=== PATIENT | female | born 1975 | race Caucasian/White ===

== ENCOUNTER 2016-05-10 19:31 | Emergency (ER) | payer OTHER ==
[2016-05-10 19:37] VITALS: BP 130/71; PULSE 88; TEMP 97.9; BMI 28.3
[2016-05-10 19:43] LABS: URINE APPEARANCE Clear; URINE BILIRUBIN Negative (NEGATIVE); URINE GLUCOSE (UA) Negative (NEGATIVE); URINE KETONE Negative (NEGATIVE); URINE NITRITE Negative (NEGATIVE); URINE PROTEIN Negative (NEGATIVE); URINE UROBILINOGEN 0.2 E.U/dl (0.2-1.0)
[2016-05-10 19:48] LABS: URINE BLOOD 1+ (NEGATIVE); URINE COLOR YELLOW
--- NOTE | 2016-05-10 20:26 | PDOC ---
History of Present Illness - History of Present Illness Initial Comments: 05/10/16 20:41 The patient is a 41 year old female, with a significant past medical history of UTI and kidney stones, who presents to the emergency department with burning on urination and suprapubic discomfort since yesterday. She states she finished a 10 day dose of amoxicillin for a UTI 3 days ago and felt her symptoms resolve, however, reports her dysuria returned at 4am this morning with new onset of bladder pain. She also reports a couple episodes of watery, brown diarrhea yesterday. She reports starting ortho tri cyclen-low 2 months ago. She also reports recently being tested for STDs and was negative. She states she has had adverse reactions to macrobid and usually takes amoxicillin if needed. LMP: 04/20/16 She denies chest pain, shortness of breath, headache and dizziness. She denies fever, chills, nausea, vomit, diarrhea and constipation. She denies frequency, urgency and hematuria. practice specialist - Dr. Braga <Rosi Gonzales - Last Filed: 05/10/16 20:41> <Lulú Lindsey - Last Filed: 05/11/16 03:33> - General Chief Complaint: Urinary Problem Stated Complaint: burning on urination Time Seen by Provider: 05/10/16 19:33 Past History <Rosi Gonzales - Last Filed: 05/10/16 20:41> - Past Medical History Other medical history: denies - Psycho/Social/Smoking Cessation Hx Anxiety: No Suicidal Ideation: No Smoking History: Never smoked Have you smoked in the past 12 months: No Hx Alcohol Use: No Drug/Substance Use Hx: No Substance Use Type: None <Lulú Lindsey - Last Filed: 05/11/16 03:33> - Past Medical History Allergies/Adverse Reactions: Allergies Allergy/AdvReac Type Severity Reaction Status Date / Time Sulfa (Sulfonamide Allergy Verified 05/10/16 19:31 Antibiotics) Home Medications: Ambulatory Orders Norgestimate-Ethinyl Estradiol [Ortho Tri-Cyclen Lo Tablet] 1 each PO DAILY 04/25 Review of Systems - Review of Systems Able to Perform ROS?: Yes Comments:: 05/10/16 20:41 CONSTITUTIONAL: Absent: fever, chills, diaphoresis, generalized weakness, malaise, loss of appetite HEENT: Absent: rhinorrhea, nasal congestion, throat pain, throat swelling, difficulty swallowing,mouth swelling, ear pain, eye pain, visual Changes CARDIOVASCULAR: Absent: chest pain, syncope, palpitations, irregular heart rate, lightheadedness , peripheral edema RESPIRATORY: Absent: cough, shortness of breath, dyspnea with exertion, orthopnea, wheezing, stridor, hemoptysis GASTROINTESTINAL: Absent: abdominal distension, nausea, vomiting, diarrhea, constipation, melena, hematochezia GENITOURINARY: (+) dysuria, suprapubic pain. Absent: frequency, urgency, hesitancy, hematuria, flank pain, genital pain MUSCULOSKELETAL: Absent: myalgia, arthralgia, joint swelling SKIN: Absent: rash, itching, pallor HEMATOLOGIC/IMMUNOLOGIC: Absent: easy bleeding, easy bruising, lymphadenopathy, frequent infections ENDOCRINE: Absent: unexplained weight gain, unexplained weight loss, heat intolerance, cold intolerance NEUROLOGIC: Absent: headache, focal weakness or paresthesias, dizziness, unsteady gait, seizure, mental status changes, bladder or bowel incontinence PSYCHIATRIC: Absent: anxiety, depression, suicidal or homicidal ideation, hallucinations. <Rosi Gonzales - Last Filed: 05/10/16 20:41> *Physical Exam - Vital Signs Last Vital Signs Temp Pulse Resp BP Pulse Ox 97.9 F 88 16 130/71 100 05/10/16 19:31 05/10/16 19:31 05/10/16 19:31 05/10/16 19:31 05/10/16 19:31 - Physical Exam Comments: 05/10/16 20:42 GENERAL: The patient is awake, alert, and fully oriented, in no acute distress. HEAD: Normal with no signs of trauma. EYES: Pupils equal, round and reactive to light, extraocular movements intact, sclera anicteric, conjunctiva clear with no pallor. ENT: Ears normal, nares patent, oropharynx clear without exudates. Moist mucous membranes. NECK: Normal range of motion, supple without lymphadenopathy, JVD, or masses. LUNGS: Breath sounds equal, clear to auscultation bilaterally. No wheeze/ crackles. HEART: Regular rate and rhythm, normal S1 and S2 without murmur or rub. ABDOMEN: (+) mildly ttp at the LLQ. Soft/nondistended. BS wnl. No guarding or rebound. No palpable masses. No hepatosplenomegaly. EXTREMITIES: Normal range of motion, no edema. No clubbing or cyanosis. No cords , erythema, or tenderness. NEUROLOGICAL: Cranial nerves II through XII grossly intact. Normal speech, normal gait. PSYCH: Normal mood, normal affect. SKIN: Warm, Dry, normal turgor, no rashes or lesions noted. <Rosi Gonzales - Last Filed: 05/10/16 20:41> - Vital Signs Last Vital Signs Temp Pulse Resp BP Pulse Ox 97.9 F 88 16 130/71 100 05/10/16 19:31 05/10/16 19:31 05/10/16 19:31 05/10/16 19:31 05/10/16 19:31 <Lulú Lindsey - Last Filed: 05/11/16 03:33> ED Treatment Course - ADDITIONAL ORDERS Additional order review: Laboratory Results 05/10/16 19:36 Urine Color Yellow Urine Appearance Clear Urine pH 7.0 D Ur Specific [place] 1.010 Urine Protein Negative Urine Glucose (UA) Negative Urine Ketones Negative Urine Blood 1+ H Urine Nitrite Negative Urine Bilirubin Negative Urine Urobilinogen 0.2 e.u/dl Ur Leukocyte Esterase Trace <Rosi Gonzales - Last Filed: 05/10/16 20:41> - ADDITIONAL ORDERS Additional order review: Laboratory Results 05/10/16 19:36 Urine Color Yellow Urine Appearance Clear Urine pH 7.0 D Ur Specific [place] 1.010 Urine Protein Negative Urine Glucose (UA) Negative Urine Ketones Negative Urine Blood 1+ H Urine Nitrite Negative Urine Bilirubin Negative Urine Urobilinogen 0.2 e.u/dl Ur Leukocyte Esterase Trace <Lulú Lindsey - Last Filed: 05/11/16 03:33> Progress Note - Progress Note Progress Note: Documentation has been prepared under my direction and personally reviewed by me in its entirety. I attest that this documented accurately reflects all work, treatment, procedures and medical decision making performed by me. <Lulú Lindsey - Last Filed: 05/11/16 03:33> Medical Decision Making - Medical Decision Making As noted above, this 41-year-old woman presents with burning on urination and suprapubic discomfort. Patient has just completed a course of amoxicillin for the symptoms (patient will but not take any other antibiotic). This was prescribed by her primer charging tool setter who has called her to tell her that the urine culture did not show significant amounts of bacteria. Although the patient has a history of UTI and renal stones in the past, she has never been evaluated by a urologist. Exam as noted above. Urinalysis shows no clear evidence of UTI; microscopic exam shows 0-2 RBC, 5-8 WBC, few epithelial cells, few bacteria. Urine has been sent for culture and sensitivity. Results discussed with the patient. There is no reason to begin empirical antibiotic treatment of her dysuria. Results of urine culture and sensitivity will determine if antibiotics are started again. Meanwhile, the patient should drink plenty of water and Pyridium 200 mg 3 times a day for 2 days will be prescribed. Since patient has never seen a urologist, she will be given referral information for Dr. Suleiman hernández with whom she should follow-up within the next several days. Patient states that she is leaving for [place] on vacation in approximately 10 days. She should call the urologist's office tomorrow to make an appointment. She should return to the ER if she has any increase in severity of her symptoms <Lulú Lindsey - Last Filed: 05/11/16 03:33> *DC/Admit/Observation/Transfer - Attestations Scribe Attestion: 05/10/16 20:42 Documentation prepared by Rosi Gonzales, acting as medical records receptionist for Lulú Lindsey MD <Rosi Gonzales - Last Filed: 05/10/16 20:41> <Lulú Lindsey - Last Filed: 05/11/16 03:33> Diagnosis at time of Disposition: Dysuria - Discharge Dispostion Disposition: HOME Condition at time of disposition: Stable - Referrals Referrals: Wong Bearden MD [Staff Physician] - - Patient Instructions Printed Discharge Instructions: DI for Dysuria -- Adult Additional Instructions: drink plenty of fluids pyridium 200mg 3 times a day for 2 days return to ER if pain worsens followup with urologist(Dr Suleiman hernández) within 1 week
[2016-05-10 21:19] LABS: URINE LEUK ESTERASE Trace (NEGATIVE)
[2016-05-10] MEDS ORDERED: PHENAZOPYRIDINE HCL 100 MG TABLET (FP) PO ONE (21:42)
[2016-05-10] MEDS ORDERED: PHENAZOPYRIDINE HCL 100 MG TABLET (FP) ONE (21:44)
== END 2016-05-10 21:45 | disposition home or self-care (01) ==
LOC: FER 19:31
DX: R30.0 Dysuria (principal); Z87.442 Personal history of urinary calculi; Z87.440 Personal history of urinary (tract) infections
CPT/HCPCS: 81003; 87086; 99283-25

== ENCOUNTER 2016-08-16 20:22 | Inpatient (IN) | payer OTHER ==
--- NOTE | 2016-08-16 20:25 | PDOC ---
History of Present Illness - General History Source: Patient Exam Limitations: No Limitations - History of Present Illness Initial Comments: 08/16/16 21:02 The patient is a 41 year old female, with a significant past medical history of gallstones, who presents to the emergency department complaining of RUQ for approximately 1 day. The patient reports the pain radiates into her back. She reports an associated subjective fever, chills, and body aches. The patient reports taking 1000 mg tylenol every 7-8 hours and 600 mg ibuprofen, every 4 hours, with mild relief of symptoms. Patient states she stayed at home from work today due to symptoms, and reports hydrating throughout the day. The patient denies any nausea, vomiting, diarrhea, or constipation. The patient denies any chest pain, shortness of breath, diaphoresis, or palpitations. The patient denies any cough, headache, or dizziness PAST MEDICAL HISTORY: Gallstones PAST SURGICAL HISTORY: No significant history FAMILY HISTORY: No pertinent history SOCIAL HISTORY: Pt lives with family and is employed. MEDICATIONS: Reviewed ALLERGIES: As per nursing notes General: Yes: +fever, +chills, +body aches. No weakness, no weight loss HEENT: No change in vision. No sore throat. No ear pain CardioVascular: No chest pain or shortness of breath Respiratory: No cough, or wheezing. Gastrointestinal: Yes: +RUQ pain radiating into right back. No nausea, vomiting , diarrhea or constipation. No rectal bleeding Genitourinary: No dysuria, hematuria, or frequency Musculoskeletal: No joint or muscle swelling Neurologic: No headache, vertigo, dizziness or loss of consciousness Psychiatric: No depression Skin: No rashes or easy bruising Endocrine: No increased thirst or abnormal weight change Allergic: No skin or latex allergy All other systems reviewed and normal General: Well-nourished well-developed individual, no acute distress HEENT: Dry mucous membranes. Throat: Normal, tonsils normal, no erythema or exudate Neck: Supple, no meningeal signs, no lymphadenopathy Eyes: Pupils equal reactive and round, extraocular motion intact Chest: Nontender to palpation Cardiac: Tachycardic, but regular rhythm. S1-S2 normal, no murmurs rubs or gallops Respiratory: Lungs clear to auscultation bilateral Abdomen: Tenderness on palpation to the RUQ, but no guarding or rebound. Soft, nondistended, normal bowel sounds, nontender to palpation in all other quadrants Extremities: Warm, dry, no cyanosis, clubbing, or edema Skin: No rashes Neuro: Alert and oriented x3, nonfocal exam, grossly intact, normal gait Psych: Normal mood and affect <Gee Shepherd - Last Filed: 08/16/16 21:45> - General History Source: Patient Exam Limitations: No Limitations - History of Present Illness Initial Comments: 08/16/16 23:22 A portion of this note was documented by scribe services under my direction. I have reviewed the details of the note, within reason, and agree with the documentation. The case summary and management plan written by me. Assessment and plan: This is a 41-year-old female who comes in complaining of right upper quadrant pain. Patient was also noted to have a temperature of 103 in the emergency room. Patient's lab reveals a white count of the left shift. Patient had an ultrasound of her gallbladder done that shows some questionable thickening of the gallbladder wall and a stone lodged in the neck of the gallbladder however no pericholecystic fluid or ductal dilation. Patient also did have an incidental finding of a hypokalemic very small spot on her liver that will need to be worked at some time most likely as an outpatient. Discussed with Dr. Ratliff the general surgeon who well see patient in the morning regarding probable removal of her gallbladder. Patient was then admitted to Dr. Shanel Cam. Discussed case with immediately will admit patient tonight and see patient in the morning as well. <Hudson Shelton I - Last Filed: 08/16/16 23:24> - General Chief Complaint: Pain, Acute Stated Complaint: RLQ PAIN AN DFVER Time Seen by Provider: 08/16/16 20:25 Past History <Gee Shepherd - Last Filed: 08/16/16 21:45> - Psycho/Social/Smoking Cessation Hx Anxiety: No Suicidal Ideation: No Smoking History: Never smoked Have you smoked in the past 12 months: No Hx Alcohol Use: No Drug/Substance Use Hx: No Substance Use Type: None <Hudson Shelton I - Last Filed: 08/16/16 23:24> - Past Medical History Allergies/Adverse Reactions: Allergies Allergy/AdvReac Type Severity Reaction Status Date / Time Sulfa (Sulfonamide Allergy Verified 05/10/16 19:31 Antibiotics) ciprofloxacin AdvReac Verified 08/16/16 21:09 latex AdvReac Verified 08/16/16 21:09 nitrofurantoin AdvReac Difficulty Verified 08/16/16 21:09 [From Macrobid] Breathing nitrofurantoin AdvReac Difficulty Verified 08/16/16 21:09 macrocrystalline Breathing [From Macrobid] Home Medications: Ambulatory Orders Norgestimate-Ethinyl Estradiol [Ortho Tri-Cyclen Lo Tablet] 1 each PO DAILY 04/25 Cranberry 0 mg PO DAILY 08/16/16 Multivitamin [Poly-Vitamin] 1 each PO DAILY 08/16/16 *Physical Exam - Vital Signs Last Vital Signs Temp Pulse Resp BP Pulse Ox 103.2 F H 130 H 20 121/75 100 08/16/16 20:39 08/16/16 20:24 08/16/16 20:24 08/16/16 20:56 08/16/16 20:24 <Gee Shepherd - Last Filed: 08/16/16 21:45> Heart Score/ECG Review - ECG Impressions Comment:: 08/16/16 21:10 Vent Rate: 138 bpm IMPRESSION: Sinus tachycardia. Nonspecific ST and T wave abnormality. <Gee Shepherd - Last Filed: 08/16/16 21:45> ED Treatment Course - LABORATORY CBC & Chemistry Diagram: 08/16/16 20:45 08/16/16 20:45 - ADDITIONAL ORDERS Additional order review: Laboratory Results 08/16/16 20:40 Urine Color Yellow Urine Appearance Clear Urine pH 7.5 Ur Specific [place] 1.010 Urine Protein Negative Urine Glucose (UA) Negative Urine Ketones Negative Urine Blood 1+ H Urine Nitrite Negative Urine Bilirubin Negative Urine Urobilinogen 0.2 e.u/dl Ur Leukocyte Esterase 1+ H Urine RBC 0-2 Urine WBC 5-10 Urine Bacteria Few Urine HCG, Qual Negative <Gee Shepherd - Last Filed: 08/16/16 21:45> - LABORATORY CBC & Chemistry Diagram: 08/16/16 20:45 08/16/16 20:45 <Hudson Shelton I - Last Filed: 08/16/16 23:24> *DC/Admit/Observation/Transfer - Attestations Scribe Attestion: 08/16/16 21:02 Documentation prepared by Gee Shepherd, acting as medical laboratory assistant for Hudson Shelton MD. <Gee Shepherd - Last Filed: 08/16/16 21:45> - Discharge Dispostion Admit: Yes <Hudson Shelton I - Last Filed: 08/16/16 23:24> Diagnosis at time of Disposition: Cholelithiasis with acute cholecystitis Qualifiers: Cholelithiasis location: gallbladder Biliary obstruction: with biliary obstruction Qualified Code(s): K80.01 - Calculus of gallbladder with acute cholecystitis with obstruction - Discharge Dispostion Condition at time of disposition: Fair
[2016-08-16] MEDS ORDERED: SODIUM CHLORIDE 1,000 ML IV ONE (20:37)
[2016-08-16] MEDS ORDERED: ACETAMINOPHEN 1000 MG/100 ML VIAL (NON FORMULARY) IVPB ONE (20:39)
[2016-08-16 20:46] LABS: PH,URINE 7.5 (4.5-8); URINE APPEARANCE Clear; URINE BILIRUBIN Negative (NEGATIVE); URINE GLUCOSE (UA) Negative (NEGATIVE); URINE KETONE Negative (NEGATIVE); URINE NITRITE Negative (NEGATIVE); URINE PROTEIN Negative (NEGATIVE); URINE UROBILINOGEN 0.2 E.U/dl (0.2-1.0)
[2016-08-16 20:49] LABS: URINE BLOOD 1+ (NEGATIVE); URINE COLOR YELLOW; URINE LEUK ESTERASE 1+ (NEGATIVE)
[2016-08-16 21:00] LABS: URINE BACTERIA FEW /hpf (NEGATIVE); URINE RBC 0-2 /hpf (0-3)
[2016-08-16 21:11] LABS: BASOPHIL 0.5 % (0-2.0); EOSINOPHIL 0.4 % (0-4.5); MCH 29.5 pg (25.7-33.7); MCHC 33.9 g/dl (32.0-36.0); MEAN CELL VOLUME 87.2 fl (80-96); MEAN PLT VOLUME 8.4 fl (7.5-11.1); NEUTROPHILS 79.7 % (42.8-82.8); PLATELET COUNT 297 K/MM3 (134-434); RDW 12.6 % (11.6-15.6); WHITE BLOOD COUNT 13.8 K/mm3 (4.0-10.8)
[2016-08-16 21:17] LABS: ALK PHOS 54 U/L (32-92); ANION GAP 8 (8-16); BILIRUBIN,TOTAL 0.6 mg/dl (0.2-1.0); CO2 25 mmol/L (22-28); CREATININE 0.6 mg/dl (0.6-1.3); GLUCOSE,RANDOM 110 mg/dl (74-106); SGOT/AST 20 U/L (10-42); SGPT/ALT 11 U/L (10-40); TOT PROT 7.4 g/dl (6.4-8.3)
[2016-08-16] MEDS ORDERED: PIPERACILLIN/TAZOB 3.375 GM/50 ML PRE-DOCKED IVPB STA (22:45)
[2016-08-16] MEDS ORDERED: PIPERACILLIN/TAZOBACTAM 3.375 GM VIAL IVPB ONE (23:16)
[2016-08-17] MEDS ORDERED: KETOROLAC TROMETHAMINE 30 MG/1 ML VIAL IVPUSH ONE (00:10)
[2016-08-17] MEDS ORDERED: KETOROLAC TROMETHAMINE 30 MG/1 ML VIAL ONE (00:12)
[2016-08-17 01:29] VITALS: BMI 26.8
[2016-08-17] MEDS: HYDROmorphone HCL CARPU-JECT 1 MG/1 ML DISP.SYRIN IVPB PRN ×2 (05:43→15:15)
--- NOTE | 2016-08-17 06:24 | CONSULT ---
Consult Reason for Consultation:: abdominal pain - History of Present Illness History of Present Illness: 41 year old female, with a significant past medical history of gallstones, who presents to the emergency department complaining of RUQ for approximately 1 day. The patient reports the pain radiates into her back. She reports an associated subjective fever, chills, and body aches. The patient reports taking 1000 mg tylenol every 7-8 hours and 600 mg ibuprofen, every 4 hours, with mild relief of symptoms - Past Medical History ...LMP: 08/06/16 ...: No - Alcohol/Substance Use Hx Alcohol Use: No - Smoking History Smoking history: Never smoked Have you smoked in the past 12 months: No Home Medications - Allergies Allergies/Adverse Reactions: Allergies Allergy/AdvReac Type Severity Reaction Status Date / Time Sulfa (Sulfonamide Allergy Verified 05/10/16 19:31 Antibiotics) ciprofloxacin AdvReac Verified 08/16/16 21:09 latex AdvReac Verified 08/16/16 21:09 nitrofurantoin AdvReac Difficulty Verified 08/16/16 21:09 [From Macrobid] Breathing nitrofurantoin AdvReac Difficulty Verified 08/16/16 21:09 macrocrystalline Breathing [From Macrobid] - Home Medications Home Medications: Ambulatory Orders Norgestimate-Ethinyl Estradiol [Ortho Tri-Cyclen Lo Tablet] 1 each PO DAILY 04/25 Cranberry 0 mg PO DAILY 08/16/16 Multivitamin [Poly-Vitamin] 1 each PO DAILY 08/16/16 Physical Exam Vital Signs: Vital Signs Temperature 99.1 F 08/17/16 00:56 Pulse Rate 126 H 08/17/16 00:56 Respiratory Rate 20 08/17/16 00:56 Blood Pressure 118/65 08/17/16 00:56 O2 Sat by Pulse Oximetry (%) 98 08/17/16 00:56 Imaging - Results Ultrasound: Report Reviewed Problem List - Problems (1) Cholecystitis, acute with cholelithiasis Code(s): K80.00 - CALCULUS OF GALLBLADDER W ACUTE CHOLECYST W/O OBSTRUCTION Qualifiers: Cholelithiasis location: gallbladder Biliary obstruction: with biliary obstruction Qualified Code(s): K80.01 - Calculus of gallbladder with acute cholecystitis with obstruction Assessment/Plan 41 yr old female with ?acute cholecystitis/ biliary colic recommended cholecystectomy discussed the options with patient will plan for this evening
[2016-08-17] MEDS: ACETAMINOPHEN 325 MG TABLET (FP) PO ONE ×2 (06:30→06:50)
[2016-08-17] MEDS ORDERED: SODIUM CHLORIDE 1,000 ML IV SCH (08:30)
[2016-08-17] MEDS: PANTOPRAZOLE SODIUM 40 MG/100 ML PRE-DOCKED IVPB SCH (09:33)
--- NOTE | 2016-08-17 12:07 | EKG ---
Test Reason : Blood Pressure : / mmHG Vent. Rate : 138 BPM Atrial Rate : 138 BPM P-R Int : 134 ms QRS Dur : 080 ms QT Int : 274 ms P-R-T Axes : 064 019 052 degrees QTc Int : 415 ms SINUS TACHYCARDIA NONSPECIFIC ST AND T WAVE ABNORMALITY NO PREVIOUS ECGS AVAILABLE Confirmed by HUYEN PHAM MD ([id number] on 08/17/2016 12:07:04 PM Referred By: MD CUELLO Confirmed By:HUYEN PHAM MD
[2016-08-17 13:25] LABS: INR 1.16 (0.82-1.09)
--- NOTE | 2016-08-17 13:29 | HP ---
Admitting History and Physical - Primary Care Physician PCP: Karis Gonzalez - Admission History of Present Illness: 41 year old female, with a significant past medical history of gallstones, who presents to the emergency department complaining of RUQ for approximately 1 day. The patient reports the pain radiates into her back. She reports an associated subjective fever, chills, and body aches. The patient reports taking 1000 mg tylenol every 7-8 hours and 600 mg ibuprofen, every 4 hours, with mild relief of symptoms - - Past Medical History ...LMP: 08/06/16 ...: No - Advance Directives Advance Directives: Yes: Living Will - Smoking History Smoking history: Never smoked Have you smoked in the past 12 months: No - Alcohol/Substance Use Hx Alcohol Use: No Home Medications - Allergies Allergies/Adverse Reactions: Allergies Allergy/AdvReac Type Severity Reaction Status Date / Time Sulfa (Sulfonamide Allergy Verified 05/10/16 19:31 Antibiotics) ciprofloxacin AdvReac Verified 08/16/16 21:09 latex AdvReac Verified 08/16/16 21:09 nitrofurantoin AdvReac Difficulty Verified 08/16/16 21:09 [From Macrobid] Breathing nitrofurantoin AdvReac Difficulty Verified 08/16/16 21:09 macrocrystalline Breathing [From Macrobid] - Home Medications Home Medications: Ambulatory Orders Norgestimate-Ethinyl Estradiol [Ortho Tri-Cyclen Lo Tablet] 1 each PO DAILY 04/25 Cranberry 0 mg PO DAILY 08/16/16 Multivitamin [Poly-Vitamin] 1 each PO DAILY 08/16/16 Physical Examination Vital Signs: Vital Signs Temperature 100.0 F H 08/17/16 11:41 Pulse Rate 120 H 08/17/16 06:32 Respiratory Rate 18 08/17/16 06:32 Blood Pressure 102/59 08/17/16 06:32 O2 Sat by Pulse Oximetry (%) 100 08/17/16 08:58 Constitutional: Yes: No Distress HENT: Yes: Atraumatic Neck: Yes: Supple Cardiovascular: Yes: Regular Rate and Rhythm Respiratory: Yes: CTA Bilaterally Gastrointestinal: Yes: Normal Bowel Sounds Extremities: Yes: WNL Neurological: Yes: Alert, Oriented Problem List - Problems (1) Cholecystitis, acute with cholelithiasis Assessment/Plan: npo, ivf iv abx surgery consult Code(s): K80.00 - CALCULUS OF GALLBLADDER W ACUTE CHOLECYST W/O OBSTRUCTION Qualifiers: Cholelithiasis location: gallbladder Biliary obstruction: with biliary obstruction Qualified Code(s): K80.01 - Calculus of gallbladder with acute cholecystitis with obstruction Assessment/Plan Laboratory Tests 08/16/16 08/16/16 08/16/16 20:40 20:45 20:45 WBC 13.8 H RBC 4.27 Hgb 12.6 Hct 37.2 MCV 87.2 MCHC 33.9 RDW 12.6 Plt Count 297 MPV 8.4 Neutrophils % 79.7 Lymphocytes % 13.7 D Monocytes % 5.7 Eosinophils % 0.4 Basophils % 0.5 INR Sodium 137 Potassium 3.6 Chloride 104 Carbon Dioxide 25 Anion Gap 8 BUN 5 L D Creatinine 0.6 D Creat Clearance w eGFR > 60 Random Glucose 110 H Lactic Acid Calcium 9.0 Total Bilirubin 0.6 AST 20 ALT 11 Alkaline Phosphatase 54 D Total Protein 7.4 Albumin 4.0 Lipase 33 Urine Color Yellow Urine Appearance Clear Urine pH 7.5 Ur Specific [place] 1.010 Urine Protein Negative Urine Glucose (UA) Negative Urine Ketones Negative Urine Blood 1+ H Urine Nitrite Negative Urine Bilirubin Negative Urine Urobilinogen 0.2 e.u/dl Ur Leukocyte Esterase 1+ H Urine RBC 0-2 Urine WBC 5-10 Urine Bacteria Few Urine HCG, Qual Negative Blood Type Antibody Screen 08/16/16 08/17/16 08/17/16 21:00 07:50 10:55 WBC RBC Hgb Hct MCV MCHC RDW Plt Count MPV Neutrophils % Lymphocytes % Monocytes % Eosinophils % Basophils % INR 1.16 Sodium Potassium Chloride Carbon Dioxide Anion Gap BUN Creatinine Creat Clearance w eGFR Random Glucose Lactic Acid 0.957 Calcium Total Bilirubin AST ALT Alkaline Phosphatase Total Protein Albumin Lipase Urine Color Urine Appearance Urine pH Ur Specific [place] Urine Protein Urine Glucose (UA) Urine Ketones Urine Blood Urine Nitrite Urine Bilirubin Urine Urobilinogen Ur Leukocyte Esterase Urine RBC Urine WBC Urine Bacteria Urine HCG, Qual Blood Type O POSITIVE Antibody Screen Negative Active Medications Generic Name Dose Route Start Last Admin Trade Name Freq PRN Reason Stop Dose Admin Acetaminophen 1,000 mg 08/17/16 08:35 Ofirmev Injection - IVPB Q6H PRN Hydromorphone HCl 1 mg 08/17/16 03:11 Dilaudid Injection - IVPB Q4H PRN Sodium Chloride 1,000 mls @ 75 mls/hr 08/17/16 08:30 08/17/16 09:36 Normal Saline - IV 75 mls/hr ASDIR MARCUS Administration Pantoprazole Sodium 40 mg 08/17/16 10:00 08/17/16 09:33 Protonix 40mg Ivpb (Pre-Docked) IVPB 40 mg DAILY MARCUS Administration PLAN CARDIAC ECHO CARDIOLOGY CLEARANCE FOR SURGERY
[2016-08-17] MEDS: PIPERACILLIN/TAZOB 3.375 GM 50 ML IVPB SCH ×2 (15:16→17:30)
--- NOTE | 2016-08-17 15:17 | CON.CARD ---
Consult Consult Specialty:: Cardiology Referred by:: Dr. Gonzalez Reason for Consultation:: Preop evaluation - History of Present Illness Chief Complaint: RUQ pain History of Present Illness: 41F admitted with fever, RUQ pain, elevated WBC and US showing gallstones and findings in GB c/w acute cholecystitis. Plan is for surgery this evening. Called to evaluate for sinus tach. Patient has no cardiac history: denies CAD, prior CT or syncope. No h/o CHF. Several years ago had been referred to crate maker after being admitted with UTI at [facility]. In that setting had elevated heart rate, which sounds like sinus tachycardia. Her work up at that time was reportedly unremarkable. She denies exertional CP, SOB, Palps, LE edema, PND or orthopnea. - History Source History Provided By: Patient, Medical Record Limitations to Obtaining History: No Limitations - Past Medical History Cardio/Vascular: No: AFIB, Aneurysm, Aortic Insufficiency, Aortic Stenosis, CAD , CHF, Deep Vein Thrombosis, HTN, Hyperlipdemia, CT, Mitral Insufficiency, Mitral Stenosis, Murmur, Pulmonary Hypertension, Other Pulmonary: No: Asthma, Bronchitis, Cancer, COPD, O2 Dependent, Pneumonia, Previously Intubated, Pulmonary Embolus, Pulmonary Fibrosis, Sleep Apnea, Other Gastrointestinal: No: Ascites, Cancer, Constipation, Crohn's Disease, Diverticulitis, Diverticulosis, Esophageal Varices, Gastritis, GERD, GI Bleed, Hemorrhoids, Hiatal Hernia, Inflamatory Bowel Disease, Irritable Bowel Disease, Pancreatitis, Peptic Ulcer Disease, Ulcerative Colitis, Other Hepatobiliary: No: Cirrhosis, Cholelithiasis, Cholecystitis, Choledocholithiasis , Hepatitis A, Hepatitis B, Hepatitis C, Other Renal/: No: Renal Failure, Renal Inusuff, BPH, Cancer, Hematuria, Hemodialysis , Neurogenic Bladder, Renal Calculi, UTI, Other ...LMP: 08/06/16 ...: No Heme/Onc: No: Anemia, B12 Deficiency, Bleeding Disorder, Cancer, Current Chemotherapy, Current Radiation Therapy, Hemochromatosis, Hypercoaguable State, Myeloproliferative Synd, Sickle Cell Disease, Sickle Cell Trait, Thrombocytopenia, Other Infectious Disease: No: AIDS, C-Diff, Herpes Zoster, HIV, MRSA, STD's, Tuberculosis, VREF, Other Psych: No: Addictions, Anxiety, Bipolar, Depression, Panic, Psychosis, Schizophrenia, Other Musculoskeletal: No: Bursitis, Chronic low back pain, Hemiparesis, Hemiplegia, Osteoarthritis, Paraplegia, Other Rheumatology: No: Fibromyalgia, Gout, Lupus, Rheumatoid Arthritis, Sarcoidosis, Vasculitis, Other ENT: No: Allergic Rhinitis, Sinusitis, Other Endocrine: No: Ezra's Disease, Migue's Disease, Diabetes Insipidus, Diabetes Mellitus, Hyperparathyroidism, Hyperthyroidism, Hypothyroidism, Osteopenia, SIADH, Other Dermatology: No: Basal Cell, Cellulitis, Eczema, Melanoma, Psoriasis, Squamous Cell, Other Additional Medical History: Benign fatty tissue removed from breast 18 years ago - Past Surgical History Additional Surgical History: as above. Denies bleeding tendencies/disorders. - Alcohol/Substance Use Hx Alcohol Use: No History of Substance Use: reports: None - Smoking History Smoking history: Never smoked - Social History Occupation: rehabbing stroke patients. History of Recent Travel: No Home Medications - Allergies Allergies/Adverse Reactions: Allergies Allergy/AdvReac Type Severity Reaction Status Date / Time Sulfa (Sulfonamide Allergy Verified 05/10/16 19:31 Antibiotics) ciprofloxacin AdvReac Verified 08/16/16 21:09 latex AdvReac Verified 08/16/16 21:09 nitrofurantoin AdvReac Difficulty Verified 08/16/16 21:09 [From Macrobid] Breathing nitrofurantoin AdvReac Difficulty Verified 08/16/16 21:09 macrocrystalline Breathing [From Macrobid] - Home Medications Home Medications: Ambulatory Orders Norgestimate-Ethinyl Estradiol [Ortho Tri-Cyclen Lo Tablet] 1 each PO DAILY 04/25 Cranberry 0 mg PO DAILY 08/16/16 Multivitamin [Poly-Vitamin] 1 each PO DAILY 08/16/16 Family Disease History - Family Disease History Family History: Unremarkable (no early CAD or SCD) Review of Systems Findings/Remarks: Denies exertional CP, SOB, palpitations, PND, orthopnea. Denies syncope. - Review of Systems Constitutional: reports: Chills Cardiovascular: reports: No Symptoms Respiratory: reports: No Symptoms Gastrointestinal: reports: Abdominal Pain (RUQ pain and tenderness) Genitourinary: reports: No Symptoms Musculoskeletal: reports: No Symptoms Integumentary: reports: No Symptoms Neurological: reports: No Symptoms Endocrine: reports: No Symptoms Hematology/Lymphatic: reports: No Symptoms Psychiatric: reports: No Symptoms - Risk Factors Known Risk Factors: No: Age, Diabetes Mellitus, Family History, Gender, Hypercholesterolemia, Hypertension, Physical Inactivity, Prior CT /Emb Stroke, Race, Smoking, Other Vital Signs: Vital Signs Temperature 100.7 F H 08/17/16 14:15 Pulse Rate 120 H 08/17/16 14:15 Respiratory Rate 18 08/17/16 14:15 Blood Pressure 104/60 08/17/16 14:15 O2 Sat by Pulse Oximetry (%) 98 08/17/16 14:15 Constitutional: Yes: Well Nourished Eyes: Yes: Conjunctiva Clear HENT: Yes: Atraumatic, Normocephalic Neck: Yes: Supple, Trachea Midline Respiratory: Yes: CTA Bilaterally Gastrointestinal: Yes: Other (+ Scales's sign. + tenderness RUQ.) Cardiovascular: Yes: Regular Rate and Rhythm (S1, 2. RRR. No murmurs.) JVD: No Carotid Bruit: No PMI: Non-Displaced Heart Sounds: Yes: S1, S2 (RRR, no murmurs.) Edema: No Peripheral Pulses WNL: Yes Integumentary: Yes: WNL Neurological: Yes: Alert, Oriented ...Motor Strength: WNL Psychiatric: Yes: WNL - Other Data Labs, Other Data: INR, PTT INR 1.16 (0.82-1.09) 08/17/16 07:50 Laboratory Tests 08/16/16 08/16/16 08/16/16 20:40 20:45 20:45 WBC 13.8 H Hgb 12.6 Hct 37.2 Plt Count 297 INR Sodium 137 Potassium 3.6 BUN 5 L D Creatinine 0.6 D Creat Clearance w eGFR > 60 Random Glucose 110 H Lactic Acid Calcium 9.0 Total Bilirubin 0.6 AST 20 ALT 11 Alkaline Phosphatase 54 D Total Protein 7.4 Albumin 4.0 Lipase 33 Urine Appearance Clear Urine pH 7.5 Ur Specific [place] 1.010 Urine Blood 1+ H 08/16/16 08/17/16 21:00 07:50 WBC Hgb Hct Plt Count INR 1.16 Sodium Potassium BUN Creatinine Creat Clearance w eGFR Random Glucose Lactic Acid 0.957 Calcium Total Bilirubin AST ALT Alkaline Phosphatase Total Protein Albumin Lipase Urine Appearance Urine pH Ur Specific [place] Urine Blood Sinus tachycardia 138bpm NSST changes ( 5-10-17) Echo: Pending Imaging - Results Ultrasound: Report Reviewed EKG: Image Reviewed Problem List - Problems (1) Cholecystitis, acute with cholelithiasis Assessment/Plan: -fever, leukocytosis, RUQ pain and US c/w inflammed GB with stones. -For cholecystectomy today -There are no cardiac contraindications, can proceed without need for further cardiac diagnostic testing. She has no anginal symptoms, no CHF hx and there is no murmur of . She would be considered at low operative risk for a low to intermediate risk surgery. Code(s): K80.00 - CALCULUS OF GALLBLADDER W ACUTE CHOLECYST W/O OBSTRUCTION Qualifiers: Cholelithiasis location: gallbladder Biliary obstruction: with biliary obstruction Qualified Code(s): K80.01 - Calculus of gallbladder with acute cholecystitis with obstruction (2) Sinus tachycardia Assessment/Plan: -physiologic response to fever, infection and pain -hydrate -antibiotics as per surgery -For cholecystectomy -analgesia -echo is planned, but should not delay surgery as physical exam does not suggest any significant valve disease. Code(s): R00.0 - TACHYCARDIA, UNSPECIFIED
--- NOTE | 2016-08-17 16:39 | CONSULT ---
Consult Consult Specialty:: infectious diseases Reason for Consultation:: choleycystitis - History of Present Illness Chief Complaint: abd pain ruq History of Present Illness: 41 year old female, with a significant past medical history of gallstones, admitted for RUQ pain for approximately 1 day. The patient reports the pain radiates into her back. She reports an associated subjective fever, chills, and body aches. patient has taken pain medications without relief and came to the hospital patient is otherwise relatively healthy patient is diagnosed as having ac choleycystitis and plan is for surgery tomorrow - History Source History Provided By: Patient Limitations to Obtaining History: No Limitations - Past Medical History Cardio/Vascular: No: AFIB, Aneurysm, Aortic Insufficiency, Aortic Stenosis, CAD , CHF, Deep Vein Thrombosis, HTN, Hyperlipdemia, DC, Mitral Insufficiency, Mitral Stenosis, Murmur, Pulmonary Hypertension, Other Pulmonary: No: Asthma, Bronchitis, Cancer, COPD, O2 Dependent, Pneumonia, Previously Intubated, Pulmonary Embolus, Pulmonary Fibrosis, Sleep Apnea, Other Gastrointestinal: No: Ascites, Cancer, Constipation, Crohn's Disease, Diverticulitis, Diverticulosis, Esophageal Varices, Gastritis, GERD, GI Bleed, Hemorrhoids, Hiatal Hernia, Inflamatory Bowel Disease, Irritable Bowel Disease, Pancreatitis, Peptic Ulcer Disease, Ulcerative Colitis, Other Hepatobiliary: No: Cirrhosis, Cholelithiasis, Cholecystitis, Choledocholithiasis , Hepatitis A, Hepatitis B, Hepatitis C, Other Renal/: No: Renal Failure, Renal Inusuff, BPH, Cancer, Hematuria, Hemodialysis , Neurogenic Bladder, Renal Calculi, UTI, Other ...LMP: 08/06/16 ...: No Infectious Disease: No: AIDS, C-Diff, Herpes Zoster, HIV, MRSA, STD's, Tuberculosis, VREF, Other Psych: No: Addictions, Anxiety, Bipolar, Depression, Panic, Psychosis, Schizophrenia, Other Musculoskeletal: No: Bursitis, Chronic low back pain, Hemiparesis, Hemiplegia, Osteoarthritis, Paraplegia, Other Rheumatology: No: Fibromyalgia, Gout, Lupus, Rheumatoid Arthritis, Sarcoidosis, Vasculitis, Other ENT: No: Allergic Rhinitis, Sinusitis, Other Endocrine: No: Ezra's Disease, Migue's Disease, Diabetes Insipidus, Diabetes Mellitus, Hyperparathyroidism, Hyperthyroidism, Hypothyroidism, Osteopenia, SIADH, Other Dermatology: No: Basal Cell, Cellulitis, Eczema, Melanoma, Psoriasis, Squamous Cell, Other Additional Medical History: Benign fatty tissue removed from breast 18 years ago - Past Surgical History Additional Surgical History: as above. Denies bleeding tendencies/disorders. 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 Home Medications - Allergies Allergies/Adverse Reactions: Allergies Allergy/AdvReac Type Severity Reaction Status Date / Time Sulfa (Sulfonamide Allergy Verified 05/10/16 19:31 Antibiotics) ciprofloxacin AdvReac Verified 08/16/16 21:09 latex AdvReac Verified 08/16/16 21:09 nitrofurantoin AdvReac Difficulty Verified 08/16/16 21:09 [From Macrobid] Breathing nitrofurantoin AdvReac Difficulty Verified 08/16/16 21:09 macrocrystalline Breathing [From Macrobid] - Home Medications Home Medications: Ambulatory Orders Norgestimate-Ethinyl Estradiol [Ortho Tri-Cyclen Lo Tablet] 1 each PO DAILY 04/25 Cranberry 0 mg PO DAILY 08/16/16 Multivitamin [Poly-Vitamin] 1 each PO DAILY 08/16/16 Review of Systems - Review of Systems Constitutional: reports: No Symptoms Eyes: reports: No Symptoms HENT: reports: No Symptoms Neck: reports: No Symptoms Cardiovascular: reports: No Symptoms Respiratory: reports: No Symptoms Gastrointestinal: reports: Abdominal Pain, Other Genitourinary: reports: No Symptoms Musculoskeletal: reports: No Symptoms Integumentary: reports: No Symptoms Neurological: reports: No Symptoms Endocrine: reports: No Symptoms Hematology/Lymphatic: reports: No Symptoms Psychiatric: reports: No Symptoms Physical Exam Vital Signs: Vital Signs Temperature 100.7 F H 08/17/16 14:15 Pulse Rate 120 H 08/17/16 14:15 Respiratory Rate 18 08/17/16 14:15 Blood Pressure 104/60 08/17/16 14:15 O2 Sat by Pulse Oximetry (%) 98 08/17/16 14:15 Constitutional: Yes: Well Nourished, Calm, Moderate Distress Eyes: Yes: Conjunctiva Clear HENT: Yes: Atraumatic Neck: Yes: Supple, Trachea Midline Cardiovascular: Yes: Regular Rate and Rhythm Respiratory: Yes: Regular, CTA Bilaterally Gastrointestinal: Yes: Soft, Hypoactive Bowel Sounds, Tenderness (ruq), Other Musculoskeletal: Yes: WNL Extremities: Yes: WNL Neurological: Yes: Alert, Oriented Psychiatric: Yes: Alert, Oriented Imaging - Results Ultrasound: Report Reviewed, Image Reviewed Assessment/Plan Problems (1) Cholecystitis, acute with cholelithiasis Code(s): K80.00 - CALCULUS OF GALLBLADDER W ACUTE CHOLECYST W/O OBSTRUCTION Qualifiers: Cholelithiasis location: gallbladder Biliary obstruction: with biliary obstruction Qualified Code(s): K80.01 - Calculus of gallbladder with acute cholecystitis with obstruction plan started patient on abx for surgery rest continue current mgmt
[2016-08-17] MEDS: ACETAMINOPHEN 1000 MG/100 ML VIAL (NON FORMULARY) IVPB PRN (21:25)
[2016-08-18] MEDS: PIPERACILLIN/TAZOB 3.375 GM 50 ML IVPB SCH ×3 (02:00→18:54)
--- NOTE | 2016-08-18 08:37 | PN ---
Progress Note, Physician History of Present Illness: patient stable doing well awaiting surgery pain still present - Current Medication List Current Medications: Active Medications Acetaminophen (Ofirmev Injection -) 1,000 mg IVPB Q6H PRN Last Admin: 08/17/16 21:25 Dose: 1,000 mg Hydromorphone HCl (Dilaudid Injection -) 1 mg IVPB Q4H PRN Last Admin: 08/17/16 15:15 Dose: 1 mg Sodium Chloride (Normal Saline -) 1,000 mls @ 75 mls/hr IV ASDIR MARCUS Last Admin: 08/17/16 09:36 Dose: 75 mls/hr Piperacillin Sod/Tazobactam Sod (Zosyn 3.375gm Ivpb (Pre-Docked)) 50 mls @ 100 mls/hr IVPB Q8H-IV MARCUS PRN Reason: Protocol Last Admin: 08/18/16 02:00 Dose: 100 mls/hr Pantoprazole Sodium (Protonix 40mg Ivpb (Pre-Docked)) 40 mg IVPB DAILY [facility] Last Admin: 08/17/16 09:33 Dose: 40 mg - Objective Vital Signs: Vital Signs Temperature 98.5 F 08/18/16 05:43 Pulse Rate 86 08/18/16 05:43 Respiratory Rate 19 08/18/16 08:18 Blood Pressure 80/44 08/18/16 05:43 O2 Sat by Pulse Oximetry (%) 100 08/18/16 08:18 Constitutional: Yes: No Distress, Calm Cardiovascular: Yes: Regular Rate and Rhythm Respiratory: Yes: Regular, CTA Bilaterally Gastrointestinal: Yes: Tenderness, Other. No: Tenderness, Rebound Musculoskeletal: Yes: WNL Extremities: Yes: WNL Neurological: Yes: Alert, Oriented Psychiatric: Yes: Alert, Oriented Labs: INR, PTT INR 1.16 (0.82-1.09) 08/17/16 07:50 Assessment/Plan Problems (1) Cholecystitis, acute with cholelithiasis Code(s): K80.00 - CALCULUS OF GALLBLADDER W ACUTE CHOLECYST W/O OBSTRUCTION Qualifiers: Cholelithiasis location: gallbladder Biliary obstruction: with biliary obstruction Qualified Code(s): K80.01 - Calculus of gallbladder with acute cholecystitis with obstruction plan continue abx await for surgery hydration rest as per team
--- NOTE | 2016-08-18 08:50 | PN ---
Progress Note, Physician Chief Complaint: ambulating, no acute distress Feels "Little better" No SOB History of Present Illness: blood cultures remain negative - Current Medication List Current Medications: Active Medications Acetaminophen (Ofirmev Injection -) 1,000 mg IVPB Q6H PRN Last Admin: 08/17/16 21:25 Dose: 1,000 mg Hydromorphone HCl (Dilaudid Injection -) 1 mg IVPB Q4H PRN Last Admin: 08/17/16 15:15 Dose: 1 mg Sodium Chloride (Normal Saline -) 1,000 mls @ 75 mls/hr IV ASDIR MARCUS Last Admin: 08/17/16 09:36 Dose: 75 mls/hr Piperacillin Sod/Tazobactam Sod (Zosyn 3.375gm Ivpb (Pre-Docked)) 50 mls @ 100 mls/hr IVPB Q8H-IV MARCUS PRN Reason: Protocol Last Admin: 08/18/16 02:00 Dose: 100 mls/hr Pantoprazole Sodium (Protonix 40mg Ivpb (Pre-Docked)) 40 mg IVPB DAILY [facility] Last Admin: 08/17/16 09:33 Dose: 40 mg - Objective Vital Signs: Vital Signs Temperature 98.5 F 08/18/16 05:43 Pulse Rate 86 08/18/16 05:43 Respiratory Rate 19 08/18/16 08:18 Blood Pressure 80/44 08/18/16 05:43 O2 Sat by Pulse Oximetry (%) 100 08/18/16 08:18 Constitutional: Yes: No Distress, Calm Eyes: Yes: Conjunctiva Clear HENT: Yes: Atraumatic Neck: Yes: Supple Cardiovascular: Yes: Regular Rate and Rhythm, Other (no murmurs) Respiratory: Yes: Regular, CTA Bilaterally (RUQ tenderness, no rebound or guarding) Edema: No Neurological: Yes: Alert, Oriented ...Motor Strength: WNL Labs: INR, PTT INR 1.16 (0.82-1.09) 08/17/16 07:50 Problem List - Problems (1) Cholecystitis, acute with cholelithiasis Code(s): K80.00 - CALCULUS OF GALLBLADDER W ACUTE CHOLECYST W/O OBSTRUCTION Qualifiers: Cholelithiasis location: gallbladder Biliary obstruction: with biliary obstruction Qualified Code(s): K80.01 - Calculus of gallbladder with acute cholecystitis with obstruction (2) Sinus tachycardia Code(s): R00.0 - TACHYCARDIA, UNSPECIFIED Assessment/Plan Problem List - Problems (1) Cholecystitis, acute with cholelithiasis Assessment/Plan: -fever, leukocytosis, RUQ pain and US c/w inflammed GB with stones. -For cholecystectomy today, scheduled for 3pm -There are no cardiac contraindications She has no anginal symptoms, no CHF hx and there is no murmur of . She would be considered at low operative risk for a low to intermediate risk surgery. Code(s): K80.00 - CALCULUS OF GALLBLADDER W ACUTE CHOLECYST W/O OBSTRUCTION Qualifiers: Cholelithiasis location: gallbladder Biliary obstruction: with biliary obstruction Qualified Code(s): K80.01 - Calculus of gallbladder with acute cholecystitis with obstruction (2) Sinus tachycardia Assessment/Plan: -physiologic response to fever, infection and pain: improved with increased IV fluids yesterday. -antibiotics as per surgery, on Zosyn -For cholecystectomy today -analgesia -echo done, read pending but does should not delay surgery as there are no concerning murmurs/findings on exam Code(s): R00.0 - TACHYCARDIA, UNSPECIFIED
[2016-08-18] MEDS: PANTOPRAZOLE SODIUM 40 MG/100 ML PRE-DOCKED IVPB SCH (09:43)
[2016-08-18] MEDS ORDERED: LIDOCAINE HCL/PF 2% SDV 5ML VIAL ONE (15:21)
[2016-08-18] MEDS ORDERED: PROPOFOL 20 ML ONE (15:21)
[2016-08-18] MEDS ORDERED: MIDAZOLAM HCL 2 MG/2 ML SINGLE DOSE VIAL ONE (15:21)
[2016-08-18] MEDS ORDERED: ROCURONIUM BROMIDE 50 MG/5 ML VIAL ONE (15:21)
[2016-08-18] MEDS ORDERED: ONDANSETRON 4 MG/2 ML VIAL IVPUSH PRN (15:22)
[2016-08-18] MEDS ORDERED: LACTATED RINGERS SOLUTION 1,000 ML IV SCH (15:30)
[2016-08-18] MEDS ORDERED: BUPIVACAINE HCL/PF 2.5 MG/ML - 30 ML VIAL IJ ONE (15:51)
[2016-08-18] MEDS ORDERED: ceFAZolin SODIUM 1 GM VIAL ONE (17:14)
[2016-08-18] MEDS ORDERED: DEXAMETHASONE SOD PHOSPHATE 4 MG/1 ML VIAL ONE (17:29)
[2016-08-18] MEDS ORDERED: ONDANSETRON 4 MG/2 ML VIAL ONE (17:29)
[2016-08-18] MEDS ORDERED: BUPIVACAINE HCL/PF 0.25% (2.5MG/ML) 10 ML VIAL IJ ONE (17:51)
--- NOTE | 2016-08-18 18:06 | OP ---
Operative Note - Note: Operative Date: 08/18/16 Pre-Operative Diagnosis: acute cholecystitis Operation: laparoscopic cholecystectomy Findings: acute cholecystitis Post-Operative Diagnosis: Same as Pre-op Surgeon: Narciso Ratliff Electronics Research Engineer: Ana Rivera Anesthesia: General Estimated Blood Loss (mls): 10 Operative Report Dictated: Yes
[2016-08-18] MEDS ORDERED: OXYCODONE/APAP 5/325MG COMBO TABLET PO PRN (18:10)
[2016-08-18] MEDS ORDERED: KETOROLAC TROMETHAMINE 30 MG/1 ML VIAL IVPUSH PRN (18:11)
[2016-08-18] MEDS: ACETAMINOPHEN 1000 MG/100 ML VIAL (NON FORMULARY) IVPB PRN (18:50)
--- NOTE | 2016-08-18 19:07 | PN ---
Progress Note, Physician History of Present Illness: s/p surgery - Current Medication List Current Medications: Active Medications Acetaminophen (Ofirmev Injection -) 1,000 mg IVPB Q6H PRN Last Admin: 08/17/16 21:25 Dose: 1,000 mg Fentanyl (Sublimaze Injection -) 50 mcg IVPUSH [id number] PRN PRN Reason: PAIN Stop: 08/21/16 15:23 Hydromorphone HCl (Dilaudid Injection -) 1 mg IVPB Q4H PRN Last Admin: 08/17/16 15:15 Dose: 1 mg Sodium Chloride (Normal Saline -) 1,000 mls @ 75 mls/hr IV ASDIR MARCUS Last Admin: 08/17/16 09:36 Dose: 75 mls/hr Piperacillin Sod/Tazobactam Sod (Zosyn 3.375gm Ivpb (Pre-Docked)) 50 mls @ 100 mls/hr IVPB Q8H-IV MARCUS PRN Reason: Protocol Last Admin: 08/18/16 18:54 Dose: Not Given Lactated Ringer's (Lactated Ringers Solution) 1,000 mls @ 75 mls/hr IV ASDIR [facility] Ketorolac Tromethamine (Toradol Injection -) 30 mg IVPUSH Q6H PRN PRN Reason: PAIN Stop: 08/23/16 18:10 Ondansetron HCl (Zofran Injection) 4 mg IVPUSH Q6H PRN PRN Reason: NAUSEA AND/OR VOMITING Stop: 08/18/16 21:23 Oxycodone/Acetaminophen (Percocet 5/325 -) 1 combo PO Q6H PRN PRN Reason: PAIN LEVEL 6-10 Pantoprazole Sodium (Protonix 40mg Ivpb (Pre-Docked)) 40 mg IVPB DAILY [facility] Last Admin: 08/18/16 09:43 Dose: 40 mg - Objective Vital Signs: Vital Signs Temperature 99.3 F 08/18/16 14:13 Pulse Rate 106 H 08/18/16 14:13 Respiratory Rate 16 08/18/16 14:13 Blood Pressure 114/67 08/18/16 14:13 O2 Sat by Pulse Oximetry (%) 100 08/18/16 14:13 Constitutional: Yes: No Distress HENT: Yes: Atraumatic Neck: Yes: Supple Cardiovascular: Yes: Regular Rate and Rhythm Respiratory: Yes: CTA Bilaterally Gastrointestinal: Yes: Hypoactive Bowel Sounds, Tenderness Extremities: Yes: WNL Neurological: Yes: Alert, Oriented Labs: INR, PTT INR 1.16 (0.82-1.09) 08/17/16 07:50 Problem List - Problems (1) Cholecystitis, acute with cholelithiasis Assessment/Plan: npo, ivf iv abx surgery consult Code(s): K80.00 - CALCULUS OF GALLBLADDER W ACUTE CHOLECYST W/O OBSTRUCTION Qualifiers: Cholelithiasis location: gallbladder Biliary obstruction: with biliary obstruction Qualified Code(s): K80.01 - Calculus of gallbladder with acute cholecystitis with obstruction Assessment/Plan s/p surgery prn PAIN MEDS
[2016-08-19] MEDS: PIPERACILLIN/TAZOB 3.375 GM 50 ML IVPB SCH ×2 (02:00→10:15)
[2016-08-19 07:39] LABS: BASOPHIL 0.4 % (0-2.0); EOSINOPHIL 0.3 % (0-4.5); MCH 30.4 pg (25.7-33.7); MCHC 34.4 g/dl (32.0-36.0); MEAN CELL VOLUME 88.3 fl (80-96); NEUTROPHILS 69.2 % (42.8-82.8); PLATELET COUNT 262 K/MM3 (134-434); RDW 12.7 % (11.6-15.6); WHITE BLOOD COUNT 8.7 K/mm3 (4.0-10.8)
[2016-08-19 07:56] LABS: ALBUMIN 3.3 g/dl (3.5-5.0); ALK PHOS 76 U/L (32-92); ANION GAP 9 (8-16); BILIRUBIN,TOTAL 0.6 mg/dl (0.2-1.0); CALCIUM 8.8 mg/dl (8.4-10.2); CO2 23 mmol/L (22-28); CREATININE 0.5 mg/dl (0.6-1.3); GLUCOSE,RANDOM 89 mg/dl (74-106); SGOT/AST 31 U/L (10-42); SGPT/ALT 18 U/L (10-40); TOT PROT 6.1 g/dl (6.4-8.3)
--- NOTE | 2016-08-19 08:01 | OP ---
DATE OF OPERATION: 08/18/2016 PREOPERATIVE DIAGNOSIS: Acute cholecystitis. POSTOPERATIVE DIAGNOSIS: Acute cholecystitis. PROCEDURE: Laparoscopic cholecystectomy. SURGEON: Narciso Ratliff MD STEREO EQUIPMENT INSTALLER: DEE Elizabeth ANESTHESIA: General by Ben Infante DO COMPLICATIONS: None. BLOOD LOSS: 10 mL. SPECIMEN: Gallbladder. CONDITION: Patient tolerated the procedure well. FINDINGS: Acute cholecystitis. This is a 41-year-old female who was admitted 2 days ago with right upper quadrant abdominal pain, fever, elevated white count, and ultrasound showing a stone impacted in the gallbladder neck. A surgical consult was obtained. The patient was admitted to the hospital. IV antibiosis was started and she is being taken to the operating room for a laparoscopic cholecystectomy. Risks and benefits discussed with the patient. Informed consent was obtained. was also performed. In the operating room, she received IV antibiosis. She was put in the supine position. After induction of general anesthesia, she was then prepped and draped in the usual sterile fashion. At this point then, a standard timeout was observed and then the operation was begun with a paraumbilical incision which was carried through the subcutaneous tissues using a scalpel. Bleeding was controlled with cautery. A fascial incision with standard Carlos Manuel approach was used to enter the peritoneal cavity. A 12-mm port was introduced and then insufflation to a pressure of 15 mmHg was accomplished. At this point then, a total of three 5-mm ports was introduced, 1 in the epigastrium and 2 in the right upper quadrant. The patient was then positioned in a reverse Trendelenburg position. The gallbladder was identified and retracted superiorly and laterally. There was some minimal inflammation of the gallbladder. The infundibular region of the gallbladder was then dissected with reflecting the peritoneal lining, exposing the hilar structures. The cystic duct and artery were apparent and they were circumferentially dissected. Care was taken to establish a critical view of safety clearly with visualization of the triangle of Calot and visualization of the cystic duct/common bile duct junction with clear identification of the common bile duct both proximal and distal to the cystic duct junction. The cystic artery was in the normal position within the triangle of Calot and the liver bed and was clearly visualized within the critical view of safety in the triangle of Calot as well. At this point then, a timeout was observed again to reestablish the anatomy and then the cystic duct was then doubly ligated with Endoclips and divided with Endoshears. The cystic artery was also doubly ligated with Endoclips and divided with Endoshears and the gallbladder was then dissected off the liver bed with the use of cautery using a hook dissector. The gallbladder was then completely dissected. Care was taken to avoid injury to the liver bed to any of the adjacent structures. The gallbladder was placed in an EndoCatch bag and removed through the umbilical port. The right upper quadrant was irrigated and suctioned carefully. Final check for hemostasis was performed with hemostasis achieved with cautery. Upon satisfactory hemostasis and aspiration of the gallbladder fossa and right upper quadrant, the ports were removed under direct vision. The fascia at the umbilical port was closed with 0 Vicryl sutures in interrupted fashion. The port sites were all closed at the skin level with 4-0 Monocryl. Marcaine 0.25% was then infiltrated in all incisions. Dermabond was applied and the patient was returned to the recovery room awake and alert in stable condition. She tolerated the procedure well. Mary [id number]
[2016-08-19] MEDS: ACETAMINOPHEN 1000 MG/100 ML VIAL (NON FORMULARY) IVPB PRN (08:23)
[2016-08-19] MEDS: PANTOPRAZOLE SODIUM 40 MG/100 ML PRE-DOCKED IVPB SCH (10:14)
[2016-08-19 14:20] VITALS: BP 105/58; PULSE 90; TEMP 98.4
--- NOTE | 2016-08-19 15:51 | SURG ---
Surgery Vp Human Resources Note Vp Human Resources: Ana Rivera PA-C Date of Service: 08/18/16 Diagnosis: acute cholecystitis Procedure: laparoscopic cholecystectomy I was present for the entirety of the operative procedure. For further detail, please refer to operative report. Visit type - Case Type Case Type: ED Admission - Emergency Emergency Visit: Yes ED Registration Date: 08/16/16 Care time: The patient presented to the Emergency Department on the above date and was hospitalized for further evaluation of their emergent condition. - New patient This patient is new to me today: Yes Date on this admission: 08/19/16 - Critical Care Critical Care patient: No
--- NOTE | 2016-08-19 16:10 | PN ---
Progress Note, Physician History of Present Illness: patient stable doing well post surgery - Current Medication List Current Medications: Active Medications Acetaminophen (Ofirmev Injection -) 1,000 mg IVPB Q6H PRN Last Admin: 08/19/16 08:23 Dose: 1,000 mg Fentanyl (Sublimaze Injection -) 50 mcg IVPUSH [id number] PRN PRN Reason: PAIN Stop: 08/21/16 15:23 Last Admin: 08/18/16 18:55 Dose: 50 mcg Hydromorphone HCl (Dilaudid Injection -) 1 mg IVPB Q4H PRN Last Admin: 08/17/16 15:15 Dose: 1 mg Sodium Chloride (Normal Saline -) 1,000 mls @ 75 mls/hr IV ASDIR MARCUS Last Admin: 08/17/16 09:36 Dose: 75 mls/hr Piperacillin Sod/Tazobactam Sod (Zosyn 3.375gm Ivpb (Pre-Docked)) 50 mls @ 100 mls/hr IVPB Q8H-IV MARCUS PRN Reason: Protocol Last Admin: 08/19/16 10:15 Dose: 100 mls/hr Lactated Ringer's (Lactated Ringers Solution) 1,000 mls @ 75 mls/hr IV ASDIR MARCUS Ketorolac Tromethamine (Toradol Injection -) 30 mg IVPUSH Q6H PRN PRN Reason: PAIN Stop: 08/23/16 18:10 Oxycodone/Acetaminophen (Percocet 5/325 -) 1 combo PO Q6H PRN PRN Reason: PAIN LEVEL 6-10 Pantoprazole Sodium (Protonix 40mg Ivpb (Pre-Docked)) 40 mg IVPB DAILY [facility] Last Admin: 08/19/16 10:14 Dose: 40 mg - Objective Vital Signs: Vital Signs Temperature 98.4 F 08/19/16 14:19 Pulse Rate 90 08/19/16 14:19 Respiratory Rate 18 08/19/16 14:19 Blood Pressure 105/58 08/19/16 14:19 O2 Sat by Pulse Oximetry (%) 100 08/19/16 14:19 Constitutional: Yes: No Distress, Calm Cardiovascular: Yes: Regular Rate and Rhythm Respiratory: Yes: Regular, CTA Bilaterally Gastrointestinal: Yes: Normal Bowel Sounds, Soft, Other (post op pain) Musculoskeletal: Yes: Other Neurological: Yes: Alert, Oriented Psychiatric: Yes: Alert, Oriented Labs: CBC, BMP 08/19/16 07:15 08/19/16 07:15 INR, PTT INR 1.16 (0.82-1.09) 08/17/16 07:50 Assessment/Plan Problems (1) Cholecystitis, acute with cholelithiasis Code(s): K80.00 - CALCULUS OF GALLBLADDER W ACUTE CHOLECYST W/O OBSTRUCTION Qualifiers: Cholelithiasis location: gallbladder Biliary obstruction: with biliary obstruction Qualified Code(s): K80.01 - Calculus of gallbladder with acute cholecystitis with obstruction uti plan can change abx rest as per priamry team
[2016-08-19] MEDS ORDERED: ACETAMINOPHEN 325 MG TABLET (FP) PO PRN (16:16)
--- NOTE | 2016-08-19 17:06 | DS ---
Physical Examination Vital Signs: Vital Signs Temperature 98.4 F 08/19/16 14:19 Pulse Rate 90 08/19/16 14:19 Respiratory Rate 18 08/19/16 14:19 Blood Pressure 105/58 08/19/16 14:19 O2 Sat by Pulse Oximetry (%) 100 08/19/16 14:19 Constitutional: Yes: No Distress Eyes: Yes: WNL HENT: Yes: WNL Neck: Yes: WNL Cardiovascular: Yes: WNL Respiratory: Yes: WNL Gastrointestinal: Yes: WNL Renal/: Yes: WNL Musculoskeletal: Yes: WNL Extremities: Yes: WNL Edema: No Integumentary: Yes: WNL Wound/Incision: Yes: Clean/Dry Neurological: Yes: WNL ...Motor Strength: WNL Psychiatric: Yes: WNL Labs: CBC, BMP 08/19/16 07:15 08/19/16 07:15 Discharge Summary Reason For Visit: ACUTE CHOLECYSTITIS Current Active Problems Cholecystitis, acute with cholelithiasis (Acute) Sinus tachycardia (Acute) Procedures: Principal: LAPCHOL Other Procedures: CT/SONO Hospital Course: ADMITTED AND LAPCHOL PERFORMED TOLERATED WELL GIVEN IV ABX AND IVF, DC HOME F/U WITH PMD 2-3 DAYS Condition: Fair - Instructions Diet, Activity, Other Instructions: SEE PMD 2-3 DAYS Disposition: HOME - Home Medications Comprehensive Discharge Medication List: Ambulatory Orders Norgestimate-Ethinyl Estradiol [Ortho Tri-Cyclen Lo Tablet] 1 each PO DAILY 04/25 Multivitamin [Poly-Vitamin] 1 each PO DAILY 08/16/16 Cefuroxime Axetil [Ceftin -] 500 mg PO BID #10 tablet 08/19/16
[2016-08-19] MEDS ORDERED: CEFUROXIME AXETIL 500 MG TABLET PO SCH (22:00)
--- NOTE | 2016-08-22 14:33 | PATH ---
Surgical Pathology Report Patient Name: MONE COLE Med. Rec. #: [id number] /Age/Gender: 1975 (Age: 41) / F Account: [id number] Location: [facility] Taken: 08/18/2016 Received: 08/18/2016 Reported: 08/22/2016 Physicians: Karis Gonzalez M.D. Specimen(s) Received GALLBLADDER Clinical History Acute cholecystitis Final Diagnosis GALLBLADDER, CHOLECYSTECTOMY: CHRONIC CHOLECYSTITIS, CHOLESTEROLOSIS, AND CHOLELITHIASIS. BENIGN PERICYSTIC LYMPH NODE PRESENT. Electronically Signed Tom Almanza M.D. Gross Description Received in formalin, labeled "gallbladder," is a 7.5 x 2.6 x 2.1 cm. gallbladder with a 0.2 cm. in length portion of cystic duct attached. There is a 0.4 cm in greatest dimension gallagher-brown periductal lymph node present. The outer surface is gallagher-bustamante and varies from smooth to shaggy. The lumen contains brown, gelatinous bile as well as 3 yellow, irregular, bosselated choleliths ranging from 0.6-1.4 cm in greatest dimension. The mucosa is brown with gold cholesterol stippling. The wall of the gallbladder averages 0.1 cm. in thickness. Architectural Designer sections are submitted in one cassette. 08/21/201608/21/2016
== END 2016-08-19 17:20 | disposition home or self-care (01) | DRG 263 ==
LOC: FER 20:22 → FM/S 23:25 → UNDOADMIN 08-17 00:06
PROVIDERS: ADMIT Internal Medicine; ATTEND Internal Medicine
PROC: 0FT44ZZ Resection of Gallbladder, Percutaneous Endoscopic Approach (ICD-10-PCS; principal; 2016-08-18 17:23)
DX: K80.00 Calculus of gallbladder with acute cholecystitis without obstruction (principal); R00.0 Tachycardia, unspecified; N39.0 Urinary tract infection, site not specified
CPT/HCPCS: 36415; 76700-TC; 80053; 81003; 81015; 83605; 83690; 84703; 85025; 85610; 86850; 86900; 86901; 87040; 87086; 87186; 88304-TC; 93005; 93306-TC; 94760; 99284-25

== ENCOUNTER 2017-01-13 10:00 | Emergency (ER) | payer OTHER ==
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
[2017-01-13 10:23] VITALS: BP 121/76; TEMP 99.1; BMI 27.1
[2017-01-13 11:12] VITALS: PULSE 93
== END 2017-01-13 11:11 | disposition home or self-care (01) ==
LOC: FER 10:00
DX: K60.2 Anal fissure, unspecified (principal)
CPT/HCPCS: 99282-25

== ENCOUNTER 2019-05-25 06:12 | Emergency (ER) | payer OTHER ==
--- NOTE | 2019-05-25 06:15 | PDOC ---
History of Present Illness - General Chief Complaint: Ear Problem Stated Complaint: LT EARACHE - History of Present Illness Initial Comments: 05/25/19 06:39 This 44-year-old woman with no significant past medical history presents with left ear pain and fullness for the last several hours. Patient has had several days of mild subjective fever, lightheadedness and diarrhea. Yesterday, she noticed increasing sensation of fullness and decreased hearing in the left ear. Overnight, she began to have significant pain in the left ear (did not take any analgesics). No discharge from the ear canal noted. She had sinus congestion few weeks ago but has no facial discomfort or nasal discharge now. There has been no sore throat. No history of ear infections as an adult. Medications as noted below Allergies as noted below History of cholecystectomy Past History - Past Medical History Allergies/Adverse Reactions: Allergies Allergy/AdvReac Type Severity Reaction Status Date / Time Sulfa (Sulfonamide Allergy Verified 01/13/17 10:04 Antibiotics) ciprofloxacin AdvReac Verified 01/13/17 10:04 latex AdvReac Verified 01/13/17 10:04 nitrofurantoin AdvReac Difficulty Verified 01/13/17 10:04 [From Macrobid] Breathing nitrofurantoin AdvReac Difficulty Verified 01/13/17 10:04 macrocrystalline Breathing [From Macrobid] Home Medications: Ambulatory Orders Norgestimate-Ethinyl Estradiol [Ortho Tri-Cyclen Lo Tablet] 1 each PO DAILY 04/25 Multivitamin [Poly-Vitamin] 1 each PO DAILY 08/16/16 Ascorbic Acid [Vitamin C -] 500 mg PO DAILY 01/13/17 Cholecalciferol (Vitamin D3) [Vitamin D3] 2,000 unit PO DAILY 01/13/17 Cranberry Fruit Extract [Cranberry] 0 mg PO DAILY 01/13/17 Fluticasone Prop 0.05% Nasal [Flonase -] 1 - 2 spray NS DAILY #1 spray.pump - Psycho Social/Smoking Cessation Hx Smoking History: Never smoked Have you smoked in the past 12 months: No Hx Alcohol Use: No Drug/Substance Use Hx: No Substance Use Type: None Review of Systems - Review of Systems Able to Perform ROS?: Yes Comments:: 12 point review of systems is negative except for what is noted in the history of present illness *Physical Exam - Physical Exam GENERAL: Adult female, alert and oriented x3 in, in no acute distress HEAD: Normal with no signs of trauma. EYES: PERRLA, EOMI, sclera anicteric, conjunctiva clear. ENT: Left earno edema or erythema of canal; TM retracted and opaque Right earcanal and TM normal Nares patent, oropharynx clear without exudates. Dry mucous membranes. NECK: Normal range of motion, supple without lymphadenopathy, JVD, or masses. EXTREMITIES: Normal range of motion, no edema. No clubbing or cyanosis. No erythema, or tenderness. NEUROLOGICAL: Cranial nerves II through XII grossly intact. Normal speech. No focal neurological deficits. MUSCULOSKELETAL: Back non-tender to palpation, no CVA tenderness SKIN: Warm, Dry, normal turgor, no rashes or lesions noted. Medical Decision Making - Medical Decision Making 44-year-old woman presents with several hour history of left ear fullness and increasing pain over the last few hours. No previous history of ear infection as an adult. Although she has had sinus/nasal congestion over the last few weeks, she currently does not have significant facial pain or nasal discharge now. She has had subjective fever and diarrhea for several days accompanied by lightheadedness. Exam as noted with evidence of serous otitis media on the left side Patient appears to have mild viral syndrome and may have a subacute sinusitis with accompanying edema. Nasal steroid spray will be prescribed for a few days to decrease edema in the nasopharyngeal tissues; patient also takes Zyrtec for her allergies, and she can take this at this time also to decrease local edema Since patient has had diarrhea for several days and lightheadedness, she should continue to drink plenty of fluids. Acetaminophen/ibuprofen can be taken for ear associated with her serous otitis media. If she has continued discomfort in the ear, she should follow-up with harbor tug captain ( referral information provided for her). She should continue to to rest and not work overnight tonight. She should plan to follow-up with her general doctor within the next 5 to 7 days. If she has severe symptoms such as persistent pain or high fever, she should return to the ER Discharge - Discharge Information Problems reviewed: Yes Clinical Impression/Diagnosis: Serous otitis media Qualifiers: Chronicity: acute Laterality: left Recurrence: non-recurrent Qualified Code(s) : H65.02 - Acute serous otitis media, left ear Condition: Stable Disposition: HOME - Additional Discharge Information Prescriptions: Fluticasone Prop 0.05% Nasal [Flonase -] 1 - 2 spray NS DAILY #1 spray.pump - Follow up/Referral Referrals: Davida Underwood MD [Primary Care Provider] - Tim Oseguera MD [Staff Physician] - 1 week - Patient Discharge Instructions Patient Printed Discharge Instructions: DI for Middle Ear Infection-Adult Additional Instructions: Continue to drink plenty of fluids; rest Acetaminophen/ibuprofen as needed for pain Can use Zyrtec as needed daily Flonase 2 sprays each nostril once daily for the next 5 days Return if you have severe pain, fever No work tonight Follow-up with harbor tug captain () if you continue to have ear discomfort Follow-up with your general medical doctor within the next 5 to 7 days - Post Discharge Activity Work/Back to School Note: Back to Work
[2019-05-25 06:19] VITALS: BP 128/81; PULSE 115; TEMP 97.7; BMI 26.9
== END 2019-05-25 06:43 | disposition home or self-care (01) ==
LOC: FER 06:12
DX: H65.02 Acute serous otitis media, left ear (principal)
CPT/HCPCS: 99282-25

== ENCOUNTER 2021-01-02 09:30 | Emergency (ER) | payer OTHER ==
[2021-01-02 10:00] VITALS: BMI 24.7
[2021-01-02 10:34] VITALS: TEMP 99.9
[2021-01-02] MEDS ORDERED: SODIUM CHLORIDE 0.9% 500 ML INFUS.BAG IV ONE (10:51)
[2021-01-02 11:50] VITALS: BP 101/54; PULSE 111
[2021-01-02] MEDS ORDERED: ACETAMINOPHEN 500 MG TABLET (FP) PO ONE ×2 (12:03→12:07)
== END 2021-01-02 12:25 | disposition home or self-care (01) ==
LOC: FER 09:30
DX: J32.9 Chronic sinusitis, unspecified (principal); R00.0 Tachycardia, unspecified
CPT/HCPCS: 87804; 93005; 99284-25; C9803; U0003; U0005